=== PATIENT | female | born 1950 | race Caucasian/White ===

== ENCOUNTER 2023-01-26 13:00 | Outpatient (RCR) | payer MEDICARE, BC, SELFPAY ==
[2022-11-28 08:00] VITALS: BP 129/73; PULSE 61; RESP 16; TEMP 36.1; O2SAT 98
[2022-11-28] MEDS: 0.9 % SODIUM CHLORIDE 250 ml IV (08:45)
[2022-11-28 08:49] VITALS: BP 129/73; PULSE 61; RESP 16; TEMP 36.1
[2022-11-28 09:07] VITALS: BP 133/78; PULSE 67; RESP 16; TEMP 36.7; O2SAT 96
[2022-11-28 09:52] VITALS: BP 124/71; PULSE 60; RESP 16; TEMP 36.4; O2SAT 98
[2022-11-28 10:52] VITALS: BP 144/77; PULSE 59; RESP 16; TEMP 36.9; O2SAT 100
[2022-11-28 11:27] VITALS: BP 132/77; PULSE 62; RESP 16; TEMP 36.9; O2SAT 100
--- NOTE | 2022-12-02 08:50 | ONC.NURNOTE ---
Dx: Relapsed Acute Myeloid Leukemia
[2022-12-13 08:42] VITALS: BP 108/57; PULSE 77; RESP 20; TEMP 36.6; O2SAT 99
[2022-12-13 09:30] VITALS: BP 108/57; PULSE 77; RESP 20; TEMP 36.6; O2SAT 99
[2022-12-13 09:47] VITALS: BP 103/59; PULSE 68; RESP 18; TEMP 36.7; O2SAT 97
[2022-12-13 10:32] VITALS: BP 118/71; PULSE 68; RESP 18; TEMP 36.3; O2SAT 98
[2022-12-13 11:32] VITALS: BP 94/54; PULSE 57; RESP 18; TEMP 35.9; O2SAT 97
[2022-12-13 12:23] VITALS: BP 101/65; PULSE 59; RESP 18; TEMP 36.4; O2SAT 97
[2022-12-28 15:00] VITALS: BP 101/64; PULSE 83; RESP 16; TEMP 37.3; O2SAT 98
[2022-12-28 15:04] VITALS: BP 101/64; PULSE 83; RESP 16; TEMP 37.3; O2SAT 98
--- NOTE | 2022-12-28 15:13 | ONC.NURNOTE ---
1000 Pt here and blood has not arrived. Blood arrived at 2pm. Pt called to come in and arrived at 245pm
[2022-12-28 15:24] VITALS: BP 105/66; PULSE 69; RESP 16; TEMP 36.6; O2SAT 97
[2022-12-28 16:09] VITALS: BP 128/57; PULSE 66; RESP 14; TEMP 37.3; O2SAT 97
--- NOTE | 2022-12-28 16:20 | ONC.NURNOTE ---
tolerating transfusion well. transfered to med surg. 1630 . report given. with pt and attentive. steady when up
[2022-12-28 17:47] VITALS: BP 93/58; PULSE 61; RESP 14; TEMP 37.3; O2SAT 98
[2022-12-28 18:19] VITALS: BP 103/65; PULSE 63; RESP 14; TEMP 36.8; O2SAT 99
--- NOTE | 2022-12-28 18:37 | PC.NURSE ---
Pt finished blood transfusion on this unit. Pt tolerated well. Pt?s IV removed catheter intact. Pt left accompanied by . ?
[2023-01-13 09:22] VITALS: BP 120/67; PULSE 60; RESP 16; TEMP 36.9; O2SAT 99
[2023-01-13 10:22] VITALS: BP 120/67; PULSE 60; RESP 16; TEMP 36.9; O2SAT 99
[2023-01-13 10:43] VITALS: BP 120/70; PULSE 66; RESP 16; TEMP 36.6; O2SAT 97
[2023-01-13 11:28] VITALS: BP 122/69; PULSE 65; RESP 16; TEMP 36.8; O2SAT 97
[2023-01-13 13:04] VITALS: BP 117/72; PULSE 70; RESP 18; TEMP 36.2; O2SAT 98
[2023-01-13 13:38] VITALS: BP 127/76; PULSE 71; RESP 18; TEMP 36.8; O2SAT 98
--- NOTE | 2023-01-17 13:46 | ONC.NURNOTE ---
Pt here for type and cross. Pt states hgb 8.2 yesterday at [facility]. [employer] called [facility] to see if pt still needs a blood transfusion as our parameters indicate blood transfusion if hgb less than 7. Per Taylor, no transfusion needed at this time. Pt and her verbalized understanding.
[2023-01-20 08:29] VITALS: BP 104/64; PULSE 69; RESP 16; TEMP 36.4; O2SAT 98
[2023-01-20 09:13] VITALS: BP 105/67; PULSE 69; RESP 15; TEMP 36.1; O2SAT 97
[2023-01-20 09:32] VITALS: BP 115/70; PULSE 66; RESP 16; TEMP 36.8; O2SAT 97
[2023-01-20 11:00] VITALS: BP 107/64; PULSE 68; RESP 16; TEMP 36.4; O2SAT 99
== END 2023-05-24 23:59 | disposition home or self-care (01) ==
LOC: CCIC 13:00
PROVIDERS: PCP Internal Medicine; Referring Provider Internal Medicine; Visit Provider Internal Medicine Hematology & Oncology
DX: C92.02 Acute myeloblastic leukemia, in relapse (principal)
CPT/HCPCS: 36415; 36430; 86850; 86900; 86901; 86922; 99211; J7050; P9016; P9073